=== PATIENT | female | born 1980 | race Caucasian/White ===

== ENCOUNTER → 2021-10-26 | Outpatient (CLI) | payer SELFPAY ==
[2021-10-26 17:39] LABS: Amphetamine Urine VISTA NEGATIVE (<1000 ng/mL); Barbiturate Urine VISTA NEGATIVE (< 200 ng/mL); Benzodiazepine Urine VISTA NEGATIVE (< 200 ng/mL); Cocaine Urine VISTA NEGATIVE (< 300 ng/mL); Ecstacy Urine VISTA NEGATIVE (< 500 ng/mL); Methadone Urine VISTA NEGATIVE (< 300 ng/mL); PCP Urine VISTA NEGATIVE (< 25 ng/mL); THC Urine VISTA NEGATIVE (< 50 ng/mL); Vista UDS pH Range 5
[2021-10-28 22:07] LABS: Chlamydia By Nucleic Acid AMP Negative (Negative)
[2021-10-28 22:54] LABS: Gonococcus By Nucleic Acid AMP Negative (Negative)
== END | disposition home or self-care (01) ==
LOC: LABSPEC 16:29
PROVIDERS: Visit Provider Obstetrics & Gynecology
DX: O09.90 Supervision of high risk pregnancy, unspecified, unspecified trimester (principal); Z3A.00 Weeks of gestation of pregnancy not specified
CPT/HCPCS: 80307; 87086; 87491; 87591

== ENCOUNTER → 2021-11-26 | Outpatient (CLI) | payer SELFPAY ==
[2021-11-26 13:53] LABS: Absolute Lymphocyte Count 2.34 X10^3/uL (0.83-4.51); Absolute Neutrophil Count 5.9 X10^3/uL (2.0-7.7); Basophil# 0.05 X10^3/uL; Basophil% 0.5 % (0-1); Eosinophil# 0.12 X10^3/uL; Eosinophils% 1.3 % (0-5); Hematocrit 36.6 % (37-47); Hemoglobin 12.9 g/dL (12.0-15.0); Lymphocyte # 2.34 X10^3/ul (0.83-4.51); Lymphocyte % 25.7 % (19-41); Mean Corp Hgb Conc 35.2 g/dL (32-36); Mean Corpuscular Hgb 32.1 pg (27.0-32.0); Mean Platelet Vol. 10.1 fl (6.2-12.0); Monocyte# 0.62 X10^3/uL; Monocyte% 6.8 % (0-10); NRBC Flagged by Analyzer 0 % (0-5); Neutrophil # 5.93 X10^3/uL (2.7-7.7); Neutrophil % 65.3 % (47-70); Platelet Count 269 K/mm3 (150-450); RBC Distribution Width CV 12.2 % (11.6-14.6); RBC Distribution Width SD 40.8 fl (35.1-43.9); Red Blood Count 4.02 M/mm3 (4.2-5.4); White Blood Count 9.1 K/mm3 (4.4-11.0)
[2021-11-26 14:24] LABS: Glucose Challenge Gest 1H 50g 97 mg/dL (70-140)
[2021-11-26 14:46] LABS: NATERA MAILED SPECIMEN
[2021-11-26 15:19] LABS: HIV - WCH Non-Reactive (Nonreactive); Hepatitis B Surface Antigen Non-Reactive (Nonreactive); Hepatitis C Antibody Non-Reactive (Nonreactive); Rubella IgG Reactive (Nonreactive); Syphilis Antibodies Non-reactive
== END | disposition home or self-care (01) ==
PROVIDERS: Referring Provider Obstetrics & Gynecology; Visit Provider Obstetrics & Gynecology
DX: O99.210 Obesity complicating pregnancy, unspecified trimester (principal)
CPT/HCPCS: 36415; 82950; 85025; 86703; 86762; 86780; 86803; 86850; 86900; 86901; 87340

== ENCOUNTER → 2022-01-19 | Outpatient (CLI) | payer SELFPAY ==
--- NOTE | 2022-01-19 12:22 | US_ITS ---
STUDY: SECOND AND THIRD TRIMESTER OBSTETRICAL ULTRASOUND REASON FOR EXAM: Female, 41 years old 20 week anatomy scan LMP: 09/04/2021. TECHNIQUE: Transabdominal and Transvaginal TECHNICAL QUALITY: Limited. Examination limited due to obesity. PRIOR ULTRASOUND: None. FINDINGS: There is a single intrauterine fetus. The fetus is in a breech presentation. There is demonstrated cardiac activity with a heart rate of 140 bpm. There is a normal amniotic fluid volume. The largest amniotic fluid pocket measures 4.6 cm x 4.8 cm. The amniotic fluid index (LAVERNE) is within normal limits. The placenta is posterior in location and is not low lying. There are Grade 1 placental changes. The cervix measures 7.3 cm in length. The adnexal regions are not visualized. BIOMETRY: BPD: 4.25 cm: 18 weeks, 6 days HC: 17.16 cm: 19 weeks, 5 days AC: 14.66 cm: 20 weeks, 0 days FL: 3.18 cm: 19 weeks, 6 days CI: 71.1% FL/BPD: 74.8% FL/HC: FL/AC: 21.7% HC/AC: 1.17 age by current US: 19 weeks, 4 days. TOMMY by current US: 06/11/2022. Estimated weight: 313 grams, +/- 47 grams, 57 %. Age by LMP: 19 weeks, 4 days. TOMMY by LMP: 06/11/2022. ANATOMY: Gender: Female Cranium: Normal lateral ventricles. Normal choroid plexus. Normal cerebellum. Normal cisterna magna. Normal face, nose and lips. Chest: Limited assessment of the 4 chambers of the heart due to position of the fetus and body habitus. Abdomen/Pelvis: Normal diaphragm. Normal stomach. Normal abdominal wall. Normal cord insertion. Normal 3 vessel cord. Normal kidneys. Normal bladder. Spine: Normal cervical spine. Normal thoracic spine. Normal lumbar spine. Normal sacrum. Extremities: Normal bilateral upper extremities. Limited assessment of the lower extremities. US/OB Anatomy Scan IMPRESSION: Single live uterine gestation with a mean gestational age of 19 weeks and 4 days. Limited assessment of the heart and lower extremities. Anatomical follow-up recommended. Electronically Signed: Roger Seay MD at 15:13 EDT ,
== END | disposition home or self-care (01) ==
PROVIDERS: Referring Provider Obstetrics & Gynecology; Visit Provider Obstetrics & Gynecology
DX: Z34.92 Encounter for supervision of normal pregnancy, unspecified, second trimester (principal); Z3A.19 19 weeks gestation of pregnancy
CPT/HCPCS: 76805; 76830

== ENCOUNTER → 2022-02-05 | Outpatient (CLI) | payer SELFPAY ==
--- NOTE | 2022-02-05 12:21 | US_ITS ---
STUDY: SECOND AND THIRD TRIMESTER OBSTETRICAL ULTRASOUND - LIMITED REASON FOR EXAM: Female, 41 years old follow up anatomy -- 4 CH - LOWER EXTS LMP: 09/04/2021. PRIOR ULTRASOUND: Comparison is made with prior study dated 01/19/2022. TECHNIQUE: Transabdominal TECHNICAL QUALITY: Adequate. FINDINGS: There is a single intrauterine fetus. The fetus is in a transverse lie with the head on the maternal right side. There is demonstrated cardiac activity with a heart rate of 126 bpm. BIOMETRY: Age by LMP: 22 weeks, 0 days. TOMMY by LMP: 06/11/2022. 4 view chamber of the heart was obtained. No significant abnormality is seen. Possible unilateral clubfoot. US/OB Limited (No Biometrics) IMPRESSION: Possible unilateral club foot. Electronically Signed: Roger Seay MD at 13:28 EDT ,
== END | disposition home or self-care (01) ==
PROVIDERS: Referring Provider Obstetrics & Gynecology; Visit Provider Obstetrics & Gynecology
DX: Z34.90 Encounter for supervision of normal pregnancy, unspecified, unspecified trimester (principal)
CPT/HCPCS: 76815

== ENCOUNTER → 2022-03-18 | Outpatient (CLI) | payer SELFPAY ==
[2022-03-18 13:31] LABS: Glucose Challenge Gest 1H 50g 119 mg/dL (70-140)
[2022-03-18 13:36] LABS: Absolute Neutrophil Count 5.2 X10^3/uL (2.0-7.7); Basophil# 0.06 X10^3/uL; Basophil% 0.8 % (0-1); Eosinophil# 0.16 X10^3/uL; Hematocrit 33.7 % (37-47); Lymphocyte % 23.8 % (19-41); Mean Corp Hgb Conc 35.6 g/dL (32-36); Mean Corpuscular Hgb 33.1 pg (27.0-32.0); Mean Corpuscular Volume 92.8 fL (81-99); Mean Platelet Vol. 9.4 fl (6.2-12.0); Monocyte# 0.64 X10^3/uL; NRBC Flagged by Analyzer 0 % (0-5); Neutrophil # 5.21 X10^3/uL (2.7-7.7); Platelet Count 300 K/mm3 (150-450); RBC Distribution Width CV 12.6 % (11.6-14.6); RBC Distribution Width SD 42.9 fl (35.1-43.9); Red Blood Count 3.63 M/mm3 (4.2-5.4)
== END | disposition home or self-care (01) ==
PROVIDERS: Referring Provider Obstetrics & Gynecology; Visit Provider Obstetrics & Gynecology
DX: O09.90 Supervision of high risk pregnancy, unspecified, unspecified trimester (principal)
CPT/HCPCS: 36415; 82950; 85025

== ENCOUNTER → 2022-05-21 | Outpatient (CLI) | payer SELFPAY | END | disposition home or self-care (01) | PROVIDERS: Referring Provider Obstetrics & Gynecology; Visit Provider Obstetrics & Gynecology | DX: O09.90 Supervision of high risk pregnancy, unspecified, unspecified trimester (principal); Z3A.00 Weeks of gestation of pregnancy not specified | CPT/HCPCS: 87081 ==

== ENCOUNTER 2022-06-05 01:30 | Inpatient (IN) | payer SELFPAY ==
[2022-06-05] VITALS (53 sets, daily range): BP systolic 115–177; BP diastolic 56–96; PULSE 65–127; RESP 16–18; TEMP 36.6–37.6; O2SAT 93–99; BMI 42.0
[2022-06-05 01:12] LABS: ROM Internal Control Test YES-OK TO RESULT pt. (Internal QC)
[2022-06-05 01:14] LABS: ROM Patient Test POSITIVE (Negative)
[2022-06-05 01:44] LABS: Absolute Lymphocyte Count 2.55 X10^3/uL (0.83-4.51); Absolute Neutrophil Count 7.5 X10^3/uL (2.0-7.7); Basophil# 0.07 X10^3/uL; Basophil% 0.6 % (0-1); Eosinophil# 0.28 X10^3/uL; Eosinophils% 2.5 % (0-5); Hematocrit 37.5 % (37-47); Lymphocyte # 2.55 X10^3/ul (0.83-4.51); Lymphocyte % 22.7 % (19-41); Mean Corp Hgb Conc 34.7 g/dL (32-36); Mean Corpuscular Hgb 32.1 pg (27.0-32.0); Mean Corpuscular Volume 92.6 fL (81-99); Mean Platelet Vol. 10.4 fl (6.2-12.0); Monocyte# 0.77 X10^3/uL; Monocyte% 6.9 % (0-10); NRBC Flagged by Analyzer 0 % (0-5); Neutrophil % 66.8 % (47-70); Platelet Count 264 K/mm3 (150-450); RBC Distribution Width SD 43.8 fl (35.1-43.9); Red Blood Count 4.05 M/mm3 (4.2-5.4); White Blood Count 11.2 K/mm3 (4.4-11.0)
--- NOTE | 2022-06-05 03:20 | HP.PCM.OB_ITS ---
HPI - General General Date of Admission: 06/05/22 HPI Narrative BERTA CAPUTO, is a 41 y/o @ 39 weeks 1 day who presents to L&D with the complaint of leaking fluid. She was found to be ruptured via ROM +. Her cervix was noted to be 3 cm in the office today when Dr. Cano swept membranes. She is now 4 cm dilated and shikha often but breathing through them. She has a history of section followed by a vaginal and wishes to again. The risks, benefits, and alternatives to TOLAC vs repeat section were discussed and a consent form was signed. Maternal Data Information TOMMY Calculator Estimated Delivery Date Method Current WG Current Estimate 06/11/22 Ultrasound #1 39w 1d Other Estimates 06/07/22 LMP (Certain) 39w 5d PFSH PFSH Medical History (Updated 06/05/22 @ 01:45 by Megan Bhardwaj) Superficial varicosities Home Medications prenat.vits,princess,bpx-ncwi-qxbsy 1 tab PO DAILY 10/14/21 [History Last Taken 06/04/22 09:00] aspirin 81 mg tablet,delayed release (Adult Low Dose Aspirin) 81 mg PO DAILY 03/18/22 [History Last Taken 06/04/22 09:00] Allergy/AdvReac Type Severity Reaction Status Date / Time No Known Allergies Allergy Verified 06/05/22 00:53 Family History Father CAD (coronary artery disease) Mother Thyroid disorder Sister Thyroid disorder Social History adopted: No household members: spouse number of children: 2 current occupational status: unemployed current occupation: [employer] pets and animals: No Smoking Status: Former smoker alcohol intake: current alcohol intake frequency: holidays/special occasions only substance use type: does not use caffeine: Yes do you feel safe at home: Yes additional social history: Spouse:Kieran History 3 Elective abortions Hx Para 2 Spontaneous abortions Hx # Term Pregnancies Ectopic pregnancies Hx # Pregnancies Multiple births # of living children 2 Past Pregnancies Del. Date Name GA/Weeks Outcome Route Bth Weight Infant Gen Labor Lgth Anesthesia Del Locatn Provider FOB Unknown 06/03/2010 Temitope live - full term Female [facility] Unknown 07/10/2012 Dali live - full term Female [facility] Delivery Date: Last Updated by: Yoko Loera URANIUM PROCESSING SUPERVISOR, URANIUM PROCESSING SUPERVISOR-C failed to progress Visit Details Expected Delivery Route/Plan Labor Preferences- CB/BF classes: enc labor support person: Kieran labor intervention preferences: [] pain management options preferred: limited intervention cut cord/dad catch: cord : yes PP control planned: discussed discussed possible routes of delivery and associated risks: [] special requests: [] Plans Covid status: discussed Flu vaccine: declines Tdap vaccine: declines Rhogam: NA LARC form signed: yes Problem list reviewed and updated with the most current plan of care details and appropriate orders placed. Relevant counseling for the gestational age provided. Continue routine care and follow up unless otherwise noted in visit notes/problem list details OB Flowsheet Initial Weight: Not Recorded Date -?-?-?-?-?-?-?-?-?-?-?-?- EGA Weight BP Urine Prot -?-?-?-?-?-?-?-?-?-?-?-?- Glucose FHR FuHt Pres Dilation -?-?-?-?-?-?-?-?-?-?-?-?- Effaced St Visit Note 10/26/21 -?-?-?-?-?-?-?-?-?-?-?-?- 7w 3d 244 lb 138/82 -?-?-?-?-?-?-?-?-?-?-?-?- 165 -?-?-?-?-?-?-?-?-?-?-?-?- JV- CRL is not c onsistent with LMP. new tommy 06/11/21 11/26/21 -?-?-?-?-?-?-?-?-?-?-?-?- 11w 6d 240 lb 116/74 Negative -?-?-?-?-?-?-?-?-?-?-?-?- Negative 160 -?-?-?-?-?-?-?-?-?-?-?-?- SM- no vb crampi ng 12/21/21 -?-?-?-?-?-?-?-?-?-?-?-?- 15w 3d 242 lb 2 oz 128/70 Nega tive -?-?-?-?-?-?-?-?-?-?-?-?- Negative 163 -?-?-?-?-?-?-?-?-?-?-?-?- -No VB, LOF. F eels well. Feeling flutters. WC anatomy US ordered 01/18/22 -?-?-?-?-?-?-?-?-?-?-?-?- 19w 3d 246 lb 160/110 Negative -?-?-?-?-?-?-?-?-?-?-?-?- Negative 150 -?-?-?-?-?-?-?-?-?-?-?-?- - no vb lof go od fm n oregular ctx 02/18/22 -?-?-?-?-?-?-?-?-?-?-?-?- 23w 6d 253 lb 116/66 Negative -?-?-?-?-?-?-?-?-?-?-?-?- Negative 150 24 -?-?-?-?-?-?-?-?-?-?-?-?- - SM- no vb lof good fm no reg ular ctx. 03/18/22 -?-?-?-?-?-?-?-?-?-?-?-?- 27w 6d 259 lb 122/74 Negative -?-?-?-?-?-?-?-?-?-?-?-?- Negative 148 29 -?-?-?-?-?-?-?-?-?-?-?-?- -No VB, LOF. G ood FM. Declines tdap, flu. Larc done. 32 and 36 wk US ordered 04/01/22 -?-?-?-?-?-?-?-?-?-?-?-?- 29w 6d 262 lb 8 oz 136/84 Nega tive -?-?-?-?-?-?-?-?-?-?-?-?- Negative 145 29 -?-?-?-?-?-?-?-?-?-?-?-?- JV- no lof, vagi nal bleeding, dec fm. pt talked to treatment center about the clubbed foot and has follow ups apr 22 and for ultrasounds. 04/13/22 -?-?-?-?-?-?-?-?-?-?-?-?- 31w 4d 262 lb 6 oz 124/82 Nega tive -?-?-?-?-?-?-?-?-?-?-?-?- Negative 158 32 -?-?-?-?-?-?-?-?-?-?-?-?- MH-no Vb, LOF. G ood FM. Had growth US with MFM 04/2204/29/22 -?-?-?-?-?-?-?-?-?-?-?-?- 33w 6d 264 lb 4 oz 128/80 Nega tive -?-?-?-?-?-?-?-?-?-?-?-?- Negative 147 34 -?-?-?-?-?-?--?-?-?-?-?-?- JV- normal growt h last week. has follow up at 36 weeks. pt will start coming in weekly. still wants to . will need to sing consent at 36 weeks 05/12/22 -?-?-?-?-?-?-?-?-?-?-?-?- 35w 5d 266 lb 12.8 oz 123/76 -?-?-?-?-?-?-?-?-?-?-?-?- 135 35 -?-?-?-?-?-?-?-?-?-?-?-?- LC-reactive NST. no ctx/lof/vb good fm.no concerns at this time 05/21/22 -?-?-?-?-?-?-?-?-?-?-?-?- 37w 0d 269 lb 134/81 Negative -?-?-?-?-?-?-?-?-?-?-?-?- Negative 140 Cephalic 1 -?-?-?-?-?-?-?-?-?-?-?-?- 20 -4 SM- no vb lof good fm no regular ctx 05/28/22 -?-?-?-?-?-?-?-?-?-?-?-?- 38w 0d 268 lb 2 oz 137/86 Nega tive -?-?-?-?-?-?-?-?-?-?-?-?- Negative 140 Cephalic 1.5 -?-?-?-?-?-?-?-?-?-?-?-?- 50 -3 JV- nst re active today. pt having some irregular contractions (none on mo nitor) JV- pt is declining inductio n at 39 weeks. she is 38 weeks today and wants to see what happens this week. nst reactive today. pt having some irregular contractions (none on monitor) 06/04/22 -?-?-?-?-?-?-?-?-?-?-?-?- 39w 0d 269 lb 108/70 Negative -?-?-?-?-?-?-?-?-?-?-?-?- Negative 140 39 Cephalic 3 -?-?-?-?-?-?-?-?-?-?-?-?- 60 -2 SM- no vb lof good fm no regular ctx, membranes swept SM- no vb lof good fm no reg ular ctx, membranes swept. patient declining IOL until 40-41 weeks. discussed BPP for next week for additional evaluation due to being after 39 weeks and age 41. ROS Constitutional Constitutional: Denies change in weight, fatigue, fever(s), headache(s), poor appetite or weakness Eyes Eyes: Denies blurry vision, change in vision, seeing flashes or spots in vision ENT HEENT: Denies dizziness, headache(s), loss taste/smell or sore throat Cardiovascular Cardiovascular: Denies chest pain, dizziness, dyspnea, irregular heart rhythm, leg edema, palpitations, rapid heart rate or vomiting Respiratory/Chest Respiratory/Chest: Denies chest tightness, cough, dyspnea or breast pain Gastrointestinal Gastrointestinal: Denies abdominal pain, anorexia, constipation, cramping, diarrhea, hemorrhoids, vomiting or weight changes Genitourinary Genitourinary: Denies dysuria, flank pain, genital lesions, genital pain, urinary frequency or urinary urgency Musculoskeletal Musculoskeletal: Denies back pain, difficulty walking, joint pain, limited range of motion, muscle cramps or numbness Integumentary Integumentary: Denies lesions or unusual bruising Neurologic Neurologic: Denies abnormal movements, abnormal speech, dizziness, numbness, seizure-like activity or syncope Psychiatric Psychiatric: Denies anxiety, behavioral changes, change in appetite, change in libido, cognitive impairment, confusion, depression, difficulty concentrating, hallucinations or suicidal thoughts Endocrine Endocrinology: Denies excessive sweating, polydipsia or polyuria Hematologic/Lymphatic Hematologic/Lymphatic: Denies easy bleeding, easy bruising or lymphadenopathy Allergic/Immunologic Allergic/Immunologic: Denies itchy eyes, lip swelling, seasonal rhinorrhea, rhinitis, throat swelling, tongue swelling, eczemia, wheezing or asthma Vital Signs Vital Signs Vital Signs: 06/05/22 00:48 06/05/22 00:48 Pulse Rate 118 H Blood Pressure 126/78 H BP Systolic 126 BP Diastolic 78 Weight Weight: 268 lb Body Mass Index (BMI) 42.0 Physical Exam Const alert, oriented x3, no apparent distress and healthy appearing General Appearance: cooperative; Negative for anxious HEENT normocephalic Face and Sinus: normal facial exam Eyes EOMs intact bilaterally and no scleral icterus General Eye: normal appearance of both eyes Neck full ROM and supple Lymph Lymphatic: no lymphadenopathy noted Chest Chest: abnormal inspection of the chest Resp normal respiratory effort Effort and Inspection: able to speak in complete sentences Cardio regular rate GI soft to palpation and non-tender Inspection: gravid Palpation: soft; Negative for tender external exam normal Amniotic Fluid: ROM+plus Back/Spine no CVA tenderness Extremity normal to inspection, full ROM and no clubbing, cyanosis or edema General Extremity: Negative for calf tenderness or edema Skin Lesions: no lesions Rashes: no rashes Psych mental status grossly normal Labs Labs Labs: Blood Type A POSITIVE Antibody Screen NEGATIVE Hct 37.5 % (37-47) Hgb 13.0 g/dL (12.0-15.0) Obstetrics Syphilis Total Ab Non-reactive Rubella IgG Antibody Reactive (Nonreactive) Hep Bs Antigen Non-Reactive (Nonreactive) Chlamydia DNA (FELI) Negative (Negative) Neisseria gonorrhoeae DNA (FELI) Negative (Negative) HIV 1&2 Antibody Non-Reactive (Nonreactive) Glucose 1 Hr 50 gm 119 mg/dL (70-140) Assessment & Plan (1) History of : COMMENT: failed to progress, first (2) Hx successful (vaginal after ), currently : COMMENT: 2nd (3) Supervision of high risk , antepartum: COMMENT: [id number] TOMMY:06/07/22, girl, PC:Dali Linn. Sp:Kieran (4) : QUALIFIERS: Weeks of gestation: 39 weeks Qualified Code(s): Z3A.39 - 39 weeks gestation of COMMENT: GBS Negative, NIPT low risk, anatomy USreveiwed, nl growth 04/26 (5) AMA (advanced maternal age) multigravida 35+: COMMENT: Growth US at 36 wk, IOL at 39wk, weekly nsts- pt declining 39 week induction. wants to continue conservative follow up, reevaluate weekly, discussed delivery between 40 and 41 with twice weekly nsts if over 40. (6) Language barrier: COMMENT: [place]oved [place] 06/2021 from [place] (7) COVID-19 vaccine series completed: (8) Lab test positive for detection of COVID-19 virus: COMMENT: Mid September 2021:start ASA and growth US 32 and 36 wk. (9) Obesity affecting : (10) Club foot of fetus affecting antepartum care of mother: PLAN: Plan Patient presents IAL, plan expectant management for , pitocin PRN if needed. patient states that before pitocin to be started she would prefer to discuss this Pain management: patient declines pain medication . GBS negative . Management of any complications: advanced maternal age, see above list I have reviewed the [facility] and made any clinically relevant updates.
--- NOTE | 2022-06-05 09:11 | PCM.PN.BLA ---
Progress Note Late entry: 8:10 am pt is sitting on labor ball breathing through contractions. She was 4 cm at 2:30 am and again at 4:50 am. She wants to know if making progress with all of the painful contractions. current tracing: FHT: 140-150 Moderate variability reactive no decelerations category I tracing [place]: q2-3 min Contractions cx: /-1 reviewed tracing abnormalities since last note: no changes A/P: pt has not made cervical change despite frequent contractions. she declines further intervention at this time including internal monitors, pitocin, or epidural and requests to re-evaluate in 2 more hours.
[2022-06-05] MEDS: LACTATED RINGERS 500 ML 999 ML IV (10:24)
[2022-06-05] MEDS: Lactated Ringers 1,000 ML 200 ML IV ×2 (10:24→15:55)
--- NOTE | 2022-06-05 11:08 | PCM.PN.BLA ---
Progress Note patient is tearful with contractions current tracing: FHT: 140's- 150's Moderate variability reactive no decelerations category I tracing [place]: q1-5 min Contractions palpating more mild cx: /-1 (unchanged) A/P: cervix now unchanged for over 8 hrs recommend epidural now then pitocin and internal monitors pt was reluctant with plan at first but agreed is next best step.
[2022-06-05] MEDS: fentaNYL-bupivacaine (epidural) 100 ML BAG EPIDURAL (11:51)
--- NOTE | 2022-06-05 12:20 | PN_ITS ---
Progress Note pt is now comfortable with epidural current tracing: FHT: 140 minimal to Moderate variability reactive no decelerations category I tracing [place]: q 5 min low amplitude Contractions cx: /-1 reviewed tracing abnormalities since last note: less variability than prior to epidural. A/P: start piocin now.
[2022-06-05] MEDS: Oxytocin 15 Units/NS 250ml 15 UNITS/250 ML IV.SOLN 2 UNITS IV (12:50)
[2022-06-05] MEDS: 0.9% Saline Lock 10 ML Syringe IV (12:56)
--- NOTE | 2022-06-05 16:45 | EX.PCM.OBRPT ---
Assessment & Plan (1) History of : COMMENT: failed to progress, first (2) Hx successful (vaginal after ), currently : COMMENT: 2nd (3) Supervision of high risk , antepartum: COMMENT: [id number] TOMMY:06/07/22, girl, PC:Dali Linn. Sp:Kieran (4) : QUALIFIERS: Weeks of gestation: 39 weeks Qualified Code(s): Z3A.39 - 39 weeks gestation of COMMENT: GBS Negative, NIPT low risk, anatomy USreveiwed, nl growth 04/26 (5) AMA (advanced maternal age) multigravida 35+: COMMENT: Growth US at 36 wk, IOL at 39wk, weekly nsts- pt declining 39 week induction. wants to continue conservative follow up, reevaluate weekly, discussed delivery between 40 and 41 with twice weekly nsts if over 40. (6) Language barrier: COMMENT: Moved to [facility] 06/2021 from [place] (7) COVID-19 vaccine series completed: (8) Lab test positive for detection of COVID-19 virus: COMMENT: Mid September 2021:start ASA and growth US 32 and 36 wk. (9) Obesity affecting : (10) Club foot of fetus affecting antepartum care of mother: Maternal Data Information TOMMY Calculator Estimated Delivery Date Method Current WG Current Estimate 06/11/22 Ultrasound #1 39w 1d Other Estimates 06/07/22 LMP (Certain) 39w 5d Final TOMMY: 06/07/22 Final TOMMY Source: LMP Vaginal Delivery Maternal Presentation Maternal Presentation: Spontaneous Rupture of Membranes Operative Information Date of Procedure: 06/05/22 Pre-Operative Diagnosis: 41 y/o @ 39 weeks 4 days, srom, and h/o section and prior Post-Operative Diagnosis: 41 y/o @ 39 weeks 4 days, SROM and h/o section and prior Surgery / Procedure Performed: Spontaneous Vaginal Delivery Type of Anesthesia: Epidural Drain: Renia to straight drain Estimated Blood Loss: 100cc Findings Description of Procedure: Patient began pushing and delivered the head in the JOHNY presentation. The head was delivered atraumatically. The anterior and posterior shoulders delivered without complication followed by the rest of the and the infant was placed on the maternal abdomen. Delayed cord clamping was employed for approximately 60 seconds. Cord was clamped and cut and gentle traction was applied to the cord and the placenta delivered spontaneously immediately following it was noted to be intact with three-vessel cord. The perineum and vagina were inspected and noted to have no laceration. EBL was 100 cc. Patient and infant tolerated delivery well. Presentation: Vertex Amniotic Fluid Description: Clear Placental Delivery Description: Spontaneous Placenta Disposition: [facility] Cord Vessel Description: 3 Vessels Cord Entanglement: None Infant A Gender: Female (1 minute): 8 (5 minute): 9 Delayed Cord Clamping: Yes Post Vaginal Delivery Medications Given After Delivery: IV Pitocin Episiotomy Description: None Laceration: None Complication Complications: None Multi Select Codes Urinary/Genital Urinary/Genital CPT Codes: 51487 [facility]
[2022-06-05] MEDS: Oxytocin 15 Units/NS 250ml 15 UNITS/250 ML IV.SOLN 83 UNITS IV (17:20)
[2022-06-06 04:20] VITALS: BP 137/64; PULSE 63; RESP 16; TEMP 36.8; O2SAT 98
[2022-06-06 04:21] VITALS: BP 137/64; PULSE 66
[2022-06-06 08:44] VITALS: BP 133/71; PULSE 67; PULSE 68; RESP 16; TEMP 37.2; O2SAT 98
[2022-06-06 08:45] VITALS: BP 133/71; PULSE 64
--- NOTE | 2022-06-06 11:21 | PCM.DC.SUM ---
Providers Date of Admission: 06/05/22 Primary Care Physician: No Primary Care Phys Reason For Visit: VAGINAL DELIVERY Diagnosis Discharge Diagnosis (1) History of : Status: Acute Code(s): Z98.891 - History of uterine scar from previous surgery (2) Hx successful (vaginal after ), currently : Status: Acute Code(s): O34.219 - Maternal care for unspecified type scar from previous delivery (3) Supervision of high risk , antepartum: Status: Acute Code(s): O09.90 - Supervision of high risk , unspecified, unspecified trimester (4) : Status: Acute Code(s): Z34.90 - Encounter for supervision of normal , unspecified, unspecified trimester Qualifiers: Weeks of gestation: 39 weeks Qualified Code(s): Z3A.39 - 39 weeks gestation of (5) AMA (advanced maternal age) multigravida 35+: Status: Acute Code(s): O09.529 - Supervision of elderly multigravida, unspecified trimester (6) Language barrier: Status: Acute Code(s): Z78.9 - Other specified health status (7) COVID-19 vaccine series completed: Status: Acute Code(s): Z92.29 - Personal history of other drug therapy (8) Lab test positive for detection of COVID-19 virus: Status: Acute Code(s): U07.1 - COVID-19 (9) Obesity affecting : Status: Acute Code(s): O99.210 - Obesity complicating , unspecified trimester (10) Club foot of fetus affecting antepartum care of mother: Status: Acute Code(s): O35.HXX0 - Maternal care for other (suspected) abnormality and damage, lower extremities anomalies, not applicable or unspecified Medications at Discharge Home Medications prenat.vits,princess,[id number]-[id number]-bgpjr 1 tab PO DAILY 10/14/21 aspirin 81 mg tablet,delayed release (Adult Low Dose Aspirin) 81 mg PO DAILY 03/18/22 Hospital Course Operations None Procedures - (vaginal after section ) Summary of Care Provided Minutes Spent on Discharge: 15 Hospital Course: The patient was admitted to labor and delivery at 2:30 am on 06/05/22 for spontaneous rupture of membranes. She made cervical change 1 cm then staled out. She was given pitocin and epidural and progressed to complete. She then delivered a viable female infant without complications. On post day #2 patient was doing well without complaints. Tolerating PO. Ambulating and voiding without difficulty. Feeding well. Denies chest pain, shortness of breath, calf pain/swelling, fevers, chills, lightheadedness. The decision was made to discharge to home. Physical Exam Const alert, oriented x3 and no apparent distress General Appearance: cooperative and comfortable Resp normal respiratory effort Cardio regular rate GI normal to inspection, nondistended, normoactive bowel sounds GI Narrative: uterus is firm below umbilicus Palpation: soft Back/Spine no CVA tenderness and thoraco-lumbar ROM normal Extremity normal to inspection, no clubbing, cyanosis or edema, no calf tenderness and no pedal edema Psych mental status grossly normal, thought process normal, cooperative, affect normal, speech normal, activity/motor behavior normal, denies homicidal ideation and denies suicidal ideation Weight / BMI Weight Weight: 268 lb Body Mass Index (BMI) 42.0 ABG / Lab / Microbiology Data Result Diagrams: 06/05/22 01:30 D/C Instructions Discharge Diet: No restrictions Discharge Activity: May Drive and May Shower May resume sexual activity in: 6-8 weeks Weight Bearing Status: Weight bearing as tolerated Lifting Restricted to (Lbs): 20 Call your doctor if your incision/area has: Sudden Increased Bleeding and Foul Smelling Discharge Call your doctor if you observe: Fever of 101 or Higher, Shortness of breath, Dizziness, Fainting spells, Swelling in the ankles, Chest pain, Calf discomfort and Uncontrolled pain Please Follow Up With: Lori Moon DO When: 6 weeks Meaningful Use Info Meaningful Use Diagnoses (Choose all that apply): None applicable Discharge Plan Admission Admit Date/Time: 06/05/22 01:30 Primary Reason for Your Visit: vaginal after cesaran section Attending Provider: Lori Moon Primary Care Provider: Ksenia Hogan Primary Discharge Orders/Prescriptions Prescriptions: No Action prenat.vits,princess,fuq-vnhy-hwgnq Tablet 1 tab PO DAILY aspirin [Adult Low Dose Aspirin] 81 mg tablet,delayed release (DR/EC) 81 mg PO DAILY Referrals / Follow Up: Care PhysicianKsenia Primary [Primary Care Provider] - Disposition Disposition (needs filled in before D/C Order can be placed): Home, Self Care
[2022-06-06 12:46] VITALS: BP 135/62; PULSE 65; PULSE 69; RESP 16; TEMP 37; O2SAT 97
[2022-06-06 17:43] VITALS: BP 131/83; PULSE 71; PULSE 72; RESP 16; TEMP 37.1; O2SAT 98; O2SAT 99
== END 2022-06-06 18:20 | disposition home or self-care (01) | DRG 807 ==
LOC: WPOUT 01:33 → WP 01:33
PROVIDERS: Admitting Provider Obstetrics & Gynecology; Visit Provider Obstetrics & Gynecology
DX: O34.219 Maternal care for unspecified type scar from previous cesarean delivery (principal); Z37.0 Single live birth; E66.9 Obesity, unspecified; O99.214 Obesity complicating childbirth; Z79.82 Long term (current) use of aspirin; Z3A.39 39 weeks gestation of pregnancy; Z87.891 Personal history of nicotine dependence; Z86.16 Personal history of COVID-19
CPT/HCPCS: 59025; 59050; 84112; 85025; 86850; 86900; 86901; 99221; J7120; A4216; G0378

== ENCOUNTER → 2022-07-16 | Outpatient (CLI) | payer SELFPAY ==
[2022-07-23 15:56] LABS: HPV APTIMA, High Risk Negative (Negative)
== END | disposition home or self-care (01) ==
PROVIDERS: Visit Provider Advanced Practice Midwife
DX: Z12.4 Encounter for screening for malignant neoplasm of cervix (principal)
CPT/HCPCS: 87624; 88175; G0145